=== PATIENT | female | born 1960 | race Caucasian/White ===

== ENCOUNTER → 2017-06-08 | Outpatient (CLI) | payer OTHER ==
[~2017-06-08] MED LIST: ALPR.5T PO; ALPR1TAB2 PO; CIPR500T4 PO; CLON1TAB3 PO; DULO30CA3 PO; HYDR-3714 PO; HYDR-87 PO; LAMO150T3 PO; ONDA8TAB13 PO; PARO10TA21 PO; TRAM50TA2 PO; TRAZ100T92 PO; ZOLP10TA5 PO
--- NOTE | 2017-06-08 13:26 | Diagnostic Imaging Report ---
INDICATION: Routine screening. COMPARISON: Comparison is made with prior studies from 02/04/2014 and 01/16/2013. The current study was also evaluated with a Computer Aided Detection (CAD) system. FINDINGS: Both breasts are heterogeneously dense, limiting the sensitivity of mammography. The parenchymal pattern is stable. There are benign-appearing parenchymal and vascular calcifications bilaterally. No spiculated mass or malignant-appearing microcalcifications are seen. The axillae are unremarkable. IMPRESSION: No mammographic features suspicious for malignancy are identified. ACR BI-RADS Category 2: Benign findings. Result letter will be mailed to the patient. Note: At least 10% of breast cancer is not imaged by mammography. Dictated by: Dictated on workstation # [id number]
== END ==
LOC: RAD 07:57
PROVIDERS: ATTEND Family Medicine
DX: Z12.31 Encounter for screening mammogram for malignant neoplasm of breast (principal)
CPT/HCPCS: 77067

== ENCOUNTER → 2019-11-04 | Outpatient (CLI) | payer OTHER ==
[~2019-11-04] MED LIST changes: +CLON1TAB13 PO; -CLON1TAB3 PO; -TRAM50TA2 PO; +TRAZ-227 PO; -TRAZ100T92 PO; +TRM50T PO
--- NOTE | 2019-11-04 15:12 | Diagnostic Imaging Report ---
INDICATION: Routine screening. COMPARISON is made with prior mammograms from 06/08/2017 and 02/04/2014. 2-D and 3-D bilateral screening mammography was performed with CAD. Both breasts are heterogeneously dense, limiting the sensitivity of mammography. There is a density in the mid to posterior depth right breast just lateral to the nipple line on the CC view which appears slightly more prominent. Additional views are recommended. No definite corresponding density is identified on the MLO view although this may be slightly superiorly located. The left breast is unremarkable. There are benign calcifications bilaterally. Axillae are unremarkable. IMPRESSION: BI-RADS 0 Right breast density. Additional views are recommended for further evaluation. ACR BI-RADS Category 0: Incomplete. (Needs additional imaging evaluation). Result letter will be mailed to the patient. Note: At least 10% of breast cancer is not imaged by mammography. Dictated by: Dictated on workstation # [id number]
== END ==
LOC: RAD 10:46
PROVIDERS: ATTEND Nurse Practitioner Family
DX: Z12.31 Encounter for screening mammogram for malignant neoplasm of breast (principal)
CPT/HCPCS: 77063; 77067

== ENCOUNTER → 2019-11-15 | Outpatient (CLI) | payer OTHER ==
--- NOTE | 2019-11-15 16:00 | Diagnostic Imaging Report ---
INDICATION: Right breast density. Patient presented for additional views. CORRELATION is made with screening study from 11/04/2019. Unilateral right 2-D and 3-D diagnostic mammography was performed. Spot compression CC, rolled CC, spot compression ML and conventional 90 degree lateral views were obtained. There is some slight residual density in the upper and slightly outer right breast at mid depth with additional views. This most likely represents superimposed tissue. Even so, directed sonographic interrogation of this area is recommended. No suspicious calcification are seen. IMPRESSION: BI-RADS 0 Residual density upper and slightly outer right breast mid depth. Further evaluation with ultrasound is recommended and will be performed today. ACR BI-RADS Category 0: Incomplete. (Needs additional imaging evaluation). Result letter will be mailed to the patient. Note: At least 10% of breast cancer is not imaged by mammography. Dictated by: Dictated on workstation # [id number]
--- NOTE | 2019-11-15 17:45 | Diagnostic Imaging Report ---
INDICATION: Right breast density. Correlation is made with diagnostic study earlier same day and screening study from 11/04/2019. FINDINGS: Sonographic interrogation of the upper right breast from approximately the 10 to 2 o'clock location was performed. No sonographic abnormality is seen. No solid or cystic mass is detected. IMPRESSION: No sonographic abnormality is detected. The area of density noted mammographically likely represents superimposed fibroglandular tissue. Patient may return to routine annual screening mammography. ACR BI-RADS Category 1: Negative. Result letter will be mailed to the patient. Note: At least 10% of breast cancer is not imaged by mammography. Dictated by: Dictated on workstation # [id number]
== END ==
LOC: RAD 13:17
PROVIDERS: ATTEND Family Medicine
DX: R92.2 Inconclusive mammogram (principal)
CPT/HCPCS: 76642; 77065; G0279

== ENCOUNTER → 2021-02-09 | Outpatient (CLI) | payer OTHER ==
[~2021-02-09] MED LIST changes: -CIPR500T4 PO; +CIPR500T5 PO
--- NOTE | 2021-02-09 12:30 | Diagnostic Imaging Report ---
Indication: Routine screening. Comparison is made with prior mammogram from 11/04/2019 and 06/08/2017. 2-D and 3-D bilateral screening mammography was performed with CAD. Both breasts are heterogeneously dense, limiting the sensitivity of mammography. The parenchymal pattern is stable. No mass or malignant-appearing microcalcifications are seen. There are benign calcifications present. Axillae are unremarkable. IMPRESSION: BI-RADS Category 2 No mammographic features suspicious for malignancy are identified. ACR BI-RADS Category 2: Benign findings. Result letter will be mailed to the patient. Note: At least 10% of breast cancer is not imaged by mammography. Dictated by: Dictated on workstation # [id number]
== END ==
LOC: RAD 08:18
PROVIDERS: ATTEND Internal Medicine
DX: Z12.31 Encounter for screening mammogram for malignant neoplasm of breast (principal)
CPT/HCPCS: 77063; 77067

== ENCOUNTER → 2022-11-03 | Outpatient (CLI) | payer OTHER ==
[~2022-11-03] MED LIST changes: +HYDR-4085 PO; -HYDR-87 PO
--- NOTE | 2022-11-03 15:54 | Diagnostic Imaging Report ---
INDICATION: Left knee pain. TIME OF EXAM: 1:35 p.m. FINDINGS: Three views of the left knee were obtained. Alignment is normal. Joint spaces are well maintained. Articular surfaces are smooth. No fracture, dislocation, or effusion is identified. IMPRESSION: No acute bony abnormality is detected. Dictated by: Dictated on workstation # [id number]
== END ==
LOC: RAD 13:21
PROVIDERS: ATTEND Family Medicine
DX: M25.562 Pain in left knee (principal)
CPT/HCPCS: 73562